=== PATIENT | female | born 2000 | race Two or more races ===

== ENCOUNTER 2023-08-06 22:28 | Emergency (ER) | payer MEDICAID, OTHER ==
[~2023-08-06] VITALS: Ht 152.4 cm; Wt 77.1 kg
[2023-08-06 22:34] VITALS: TEMP 98
[2023-08-06] MEDS ORDERED: KETOROLAC TROMETHAMINE 15 MG/ML VIAL ONE (23:05)
[2023-08-06] MEDS ORDERED: HYDROCODONE/APAP 5/325MG TABLET ONE (23:06)
[2023-08-06] MEDS: KETOROLAC TROMETHAMINE 15 MG/ML VIAL IM ONE (23:14)
[2023-08-06] MEDS: HYDROCODONE/APAP 5/325MG TABLET PO ONE (23:14)
[2023-08-07] MEDS ORDERED: IBUP-1955 PO (00:34)
[2023-08-07] MEDS ORDERED: ACET-2605 PO (00:34)
[2023-08-07 01:04] VITALS: BP 128/80; O2SAT 99
== END 2023-08-07 01:05 | disposition home or self-care (01) ==
LOC: ER 22:30
DX: S97.111A Crushing injury of right great toe, initial encounter (principal); X58.XXXA Exposure to other specified factors, initial encounter; Y93.B3 Activity, free weights; Y92.39 Other specified sports and athletic area as the place of occurrence of the external cause; Y99.8 Other external cause status
CPT/HCPCS: 99283; 29515; 96372; 73660; J1885